=== PATIENT | female | born 1945 | race Caucasian/White ===

== ENCOUNTER 2018-07-01 11:00 | Emergency (ER) | payer OTHER ==
[2018-07-01 11:06] VITALS: BMI 25.4
[2018-07-01] MEDS ORDERED: morphine CARPU-JECT 4 MG/1 ML DISP.SYRIN IVPUSH ONE ×2 (12:28→12:29)
[2018-07-01] MEDS ORDERED: morphine SULFATE 4 MG/ML VIAL ONE (12:57)
[2018-07-01 13:16] LABS: VENOUS PC02 48.1 mmHg (41-51); VENOUS PH 7.35 (7.31-7.41)
[2018-07-01 13:16] LABS: BASO % 0.4 % (0-2.0); EOS % 1.2 % (0-4.5); HEMATOCRIT 33.1 % (32.4-45.2); LYMPH % 16.3 % (8-40); MCH 30.5 pg (25.7-33.7); MCHC 33.2 g/dl (32.0-36.0); MEAN PLT VOLUME 7.6 fl (7.5-11.1); MONO % 6.3 % (3.8-10.2); NEUT % 75.8 % (42.8-82.8); PLATELET COUNT 289 K/MM3 (134-434); RDW 14.3 % (11.6-15.6); WHITE BLOOD COUNT 8.7 K/mm3 (4.0-10.0)
[2018-07-01 13:18] LABS: VENOUS PO2 19.6 mmHg (30-40)
[2018-07-01 13:19] LABS: EPI CELLS 0 /HPF (0-5/HPF); PH,URINE 6.5 (5.0-8.0); URINE APPEARANCE CLEAR; URINE BACTERIA 0.3 /hpf (NEGATIVE); URINE BILIRUBIN NEGATIVE (NEGATIVE); URINE CASTS 0 /lpf (0-8); URINE COLOR YELLOW; URINE GLUCOSE (UA) NEGATIVE (NEGATIVE); URINE KETONE NEGATIVE (NEGATIVE); URINE LEUK ESTERASE NEGATIVE (NEGATIVE); URINE NITRITE NEGATIVE (NEGATIVE); URINE PROTEIN NEGATIVE (NEGATIVE); URINE RBC 6 /hpf (0-4); URINE UROBILINOGEN 0.2 mg/dL (0.2-1.0); URINE WBC 0 /hpf (0-5)
[2018-07-01 13:28] LABS: INR 1.05 (0.83-1.09); PROTHROMBIN TIME (PATIENT) 12.4 SEC (9.7-13.0)
[2018-07-01 13:43] LABS: ALBUMIN 4.1 g/dl (3.4-5.0); ALK PHOS 103 U/L (45-117); ANION GAP 8 MMOL/L (8-16); BILIRUBIN,TOTAL 0.3 mg/dL (0.2-1); BLOOD UREA NITROGEN 19 mg/dL (7-18); CALCIUM 9.5 mg/dL (8.5-10.1); CHLORIDE 109 mmol/L (98-107); CO2 26 mmol/L (21-32); CREATININE 0.9 mg/dL (0.55-1.3); GLUCOSE,RANDOM 97 mg/dL (74-106); LIPASE 163 U/L (73-393); MAGNESIUM 2.2 mg/dL (1.8-2.4); PHOSPHOROUS 2.9 mg/dL (2.5-4.9); POTASSIUM 4.1 mmol/L (3.5-5.1); SGOT/AST 23 U/L (15-37); SGPT/ALT 41 U/L (13-61); SODIUM 143 mmol/L (136-145); TOT PROT 7.5 g/dl (6.4-8.2)
--- NOTE | 2018-07-01 15:06 | PDOC ---
History of Present Illness - General Chief Complaint: Pain Stated Complaint: SENT BY PCP Time Seen by Provider: 07/01/18 11:51 History Source: Patient Exam Limitations: No Limitations - History of Present Illness Initial Comments: 07/01/18 14:59 73 yo F w/ a h/o GERD comes in c/o 4 days of diffuse intermittent lower abdominal pain, mostly suprapubic, radiating to the RLQ and LLQ intermittently. Also c/o 2 episodes of NB loose stools today. NO fever/chills, no NV, no headache, no neck pain, no upper abdominal pain, no burning/pain on urination, no blood in urine, no h/o kidney stones, no rash anywhere, no known sick contacts, no recent travel. No h/o abdominal surgeries, no h/o constipation. Pt has been taking Advil 400mg and tylenol 350mg with temporary relief. It was not helping today and pain was a 10/10, hence the ED visit PMD Dr. Barfield 07/01/18 15:13 Past History - Past Medical History Allergies/Adverse Reactions: Allergies Allergy/AdvReac Type Severity Reaction Status Date / Time No Known Allergies Allergy Verified 07/01/18 11:03 Home Medications: Ambulatory Orders Ciprofloxacin [Cipro -] 500 mg PO Q12H 10 Days #20 tablet 07/01/18 metroNIDAZOLE [Flagyl -] 500 mg PO TID 10 Days #30 tablet 07/01/18 Anemia: Yes Asthma: No Cancer: No Cardiac Disorders: No CVA: No COPD: No CHF: No Dementia: No Diabetes: No GI Disorders: Yes (GERD) Disorders: No HTN: No Hypercholesterolemia: No Liver Disease: No Seizures: No Thyroid Disease: No - Surgical History Abdominal Surgery: Yes Appendectomy: No Cardiac Surgery: No Cholecystectomy: No Lung Surgery: No Neurologic Surgery: No Orthopedic Surgery: No - Immunization History Immunization Up to Date: Yes - Suicide/Smoking/Psychosocial Hx Smoking Status: Yes Smoking History: Never smoked Have you smoked in the past 12 months: No Number of Cigarettes Smoked Daily: 0 Information on smoking cessation initiated: No Hx Alcohol Use: No Drug/Substance Use Hx: No Substance Use Type: None Review of Systems - Review of Systems Able to Perform ROS?: Yes Constitutional: No: Chills, Fever, Malaise, Night Sweats HEENTM: No: Eye Pain, Recent change in vision, Throat Pain Respiratory: No: Cough, Shortness of Breath Cardiac (ROS): No: Chest Pain, Palpitations, Chest Tightness ABD/GI: Yes: Abdominal cramping. No: Diarrhea, Nausea, Poor Appetite, Poor Fluid Intake, Vomiting : No: Dysuria, Hematuria Musculoskeletal: No: Back Pain Integumentary: No: Rash Neurological: No: Headache, Numbness, Dizziness Psychiatric: No: Change in Appetite Endocrine: No: Unexplained Weight Loss *Physical Exam - Vital Signs Last Vital Signs Temp Pulse Resp BP Pulse Ox 98.2 F 85 17 110/83 100 07/01/18 11:03 07/01/18 11:03 07/01/18 11:03 07/01/18 11:03 07/01/18 11:03 - Physical Exam General Appearance: Yes: Nourished. No: Apparent Distress HEENT: positive: OVI, Normal ENT Inspection, Normal Voice. negative: Pale Conjunctivae, Scleral Icterus (R), Scleral Icterus (L) Neck: positive: Supple. negative: Decreased range of motion, Tender midline Respiratory/Chest: positive: Lungs Clear, Normal Breath Sounds. negative: Respiratory Distress, Accessory Muscle Use Cardiovascular: positive: Regular Rhythm, Regular Rate Gastrointestinal/Abdominal: positive: Normal Bowel Sounds, Tender (Diffuse suprapubic, RLQ/LLQ, (+)tenderness at McBurney's point, (+)rebound, (-)Rosving/ psoas sign, (-)mosqueda's sign), Soft Musculoskeletal: positive: Normal Inspection. negative: CVA Tenderness, Decreased Range of Motion Extremity: positive: Normal Capillary Refill, Normal Inspection, Normal Range of Motion. negative: Tender, Pedal Edema Integumentary: positive: Normal Color, Dry. negative: Jaundice, Rash Neurologic: positive: Fully Oriented, Alert, Normal Mood/Affect ED Treatment Course - LABORATORY CBC & Chemistry Diagram: 07/01/18 12:55 07/01/18 12:55 - ADDITIONAL ORDERS Additional order review: Laboratory Results 07/01/18 07/01/18 07/01/18 13:14 12:55 12:55 PT with INR INR VBG pH 7.35 POC VBG pCO2 48.1 POC VBG pO2 19.6 L VBG HCO3 25.5 VBG O2 Sat (Lazaro) 24.3 L VBG Base Excess -0.2 Sodium 143 Potassium 4.1 Chloride 109 H Carbon Dioxide 26 Anion Gap 8 BUN 19 H Creatinine 0.9 Creat Clearance w eGFR 61.55 Random Glucose 97 Calcium 9.5 Phosphorus 2.9 Magnesium 2.2 Total Bilirubin 0.3 AST 23 ALT 41 Alkaline Phosphatase 103 Total Protein 7.5 Albumin 4.1 Lipase 163 Urine Color Yellow Urine Appearance Clear Urine pH 6.5 Ur Specific [place] 1.008 L Urine Protein Negative Urine Glucose (UA) Negative Urine Ketones Negative Urine Blood 1+ H Urine Nitrite Negative Urine Bilirubin Negative Urine Urobilinogen 0.2 Ur Leukocyte Esterase Negative Urine WBC (Auto) 0 Urine RBC (Auto) 6 Urine Casts (Auto) 0 U Epithel Cells (Auto) 0 Urine Bacteria (Auto) 0.3 Blood Type Antibody Screen 07/01/18 07/01/18 12:55 12:55 PT with INR 12.40 INR 1.05 VBG pH POC VBG pCO2 POC VBG pO2 VBG HCO3 VBG O2 Sat (Lazaro) VBG Base Excess Sodium Potassium Chloride Carbon Dioxide Anion Gap BUN Creatinine Creat Clearance w eGFR Random Glucose Calcium Phosphorus Magnesium Total Bilirubin AST ALT Alkaline Phosphatase Total Protein Albumin Lipase Urine Color Urine Appearance Urine pH Ur Specific [place] Urine Protein Urine Glucose (UA) Urine Ketones Urine Blood Urine Nitrite Urine Bilirubin Urine Urobilinogen Ur Leukocyte Esterase Urine WBC (Auto) Urine RBC (Auto) Urine Casts (Auto) U Epithel Cells (Auto) Urine Bacteria (Auto) Blood Type A POSITIVE Antibody Screen Negative 07/01/18 12:55 RBC 3.60 MCV 92.0 MCHC 33.2 RDW 14.3 MPV 7.6 Neutrophils % 75.8 D Lymphocytes % 16.3 D Monocytes % 6.3 Eosinophils % 1.2 Basophils % 0.4 - RADIOLOGY Radiology Studies Ordered: Category Date Time Status ABDOMEN & PELVIS CT WITH CONTR [CT] Stat CT Scan 07/01/18 12:24 Taken - Medications Given in the ED: ED Medications Discontinued Medications Generic Name Dose Route Start Last Admin Trade Name Freq PRN Reason Stop Dose Admin Morphine Sulfate 4 mg 07/01/18 12:28 07/01/18 13:00 Morphine Injection - IVPUSH 07/01/18 12:29 4 mg ONCE ONE Administration Morphine Sulfate 4 mg 07/01/18 12:29 07/01/18 13:41 Morphine Injection - IVPUSH 07/01/18 12:30 Not Given ONCE ONE Medical Decision Making - Medical Decision Making 07/01/18 15:07 73 yo F w/ diffuse lower abdominal cramping, RLQ/LLQ, (+)rebound, no other complaints. 2 loose NB stools today. Will check UA, line and lab, do a CT abdomen/pelvis. NPO and reassess 07/01/18 15:48 CT shows diverticulitis. WIll discharge with mirela alston. Dr. Rankin at bedside, will follow up with her outpatient Return ffor worsening/concerning symtpoms Pt verbalizes understanding and agrees with plan *DC/Admit/Observation/Transfer Diagnosis at time of Disposition: Diverticulitis - Discharge Dispostion Disposition: HOME Condition at time of disposition: Stable - Referrals Referrals: Liam Durham MD [Primary Care Provider] - - Patient Instructions Printed Discharge Instructions: DI for Diverticulitis Additional Instructions: Please return for worsening/concerning symptoms, including inability to tolerate PO, vomiting, diarrhea, fever. Follow up with your doctor for reassessment. - Post Discharge Activity
[2018-07-01 15:26] VITALS: BP 140/71; PULSE 75; TEMP 98.1
--- NOTE | 2018-07-01 16:09 | PDOC ---
*Physical Exam - Vital Signs Last Vital Signs Temp Pulse Resp BP Pulse Ox 98.1 F 75 20 140/71 96 07/01/18 15:24 07/01/18 15:24 07/01/18 15:24 07/01/18 15:24 07/01/18 15:24 ED Treatment Course - LABORATORY CBC & Chemistry Diagram: 07/01/18 12:55 07/01/18 12:55 - ADDITIONAL ORDERS Additional order review: Laboratory Results 07/01/18 07/01/18 07/01/18 13:14 12:55 12:55 PT with INR INR VBG pH 7.35 POC VBG pCO2 48.1 POC VBG pO2 19.6 L VBG HCO3 25.5 VBG O2 Sat (Lazaro) 24.3 L VBG Base Excess -0.2 Sodium 143 Potassium 4.1 Chloride 109 H Carbon Dioxide 26 Anion Gap 8 BUN 19 H Creatinine 0.9 Creat Clearance w eGFR 61.55 Random Glucose 97 Calcium 9.5 Phosphorus 2.9 Magnesium 2.2 Total Bilirubin 0.3 AST 23 ALT 41 Alkaline Phosphatase 103 Total Protein 7.5 Albumin 4.1 Lipase 163 Urine Color Yellow Urine Appearance Clear Urine pH 6.5 Ur Specific [place] 1.008 L Urine Protein Negative Urine Glucose (UA) Negative Urine Ketones Negative Urine Blood 1+ H Urine Nitrite Negative Urine Bilirubin Negative Urine Urobilinogen 0.2 Ur Leukocyte Esterase Negative Urine WBC (Auto) 0 Urine RBC (Auto) 6 Urine Casts (Auto) 0 U Epithel Cells (Auto) 0 Urine Bacteria (Auto) 0.3 Blood Type Antibody Screen 07/01/18 07/01/18 12:55 12:55 PT with INR 12.40 INR 1.05 VBG pH POC VBG pCO2 POC VBG pO2 VBG HCO3 VBG O2 Sat (Lazaro) VBG Base Excess Sodium Potassium Chloride Carbon Dioxide Anion Gap BUN Creatinine Creat Clearance w eGFR Random Glucose Calcium Phosphorus Magnesium Total Bilirubin AST ALT Alkaline Phosphatase Total Protein Albumin Lipase Urine Color Urine Appearance Urine pH Ur Specific [place] Urine Protein Urine Glucose (UA) Urine Ketones Urine Blood Urine Nitrite Urine Bilirubin Urine Urobilinogen Ur Leukocyte Esterase Urine WBC (Auto) Urine RBC (Auto) Urine Casts (Auto) U Epithel Cells (Auto) Urine Bacteria (Auto) Blood Type A POSITIVE Antibody Screen Negative 07/01/18 12:55 RBC 3.60 MCV 92.0 MCHC 33.2 RDW 14.3 MPV 7.6 Neutrophils % 75.8 D Lymphocytes % 16.3 D Monocytes % 6.3 Eosinophils % 1.2 Basophils % 0.4 - Medications Given in the ED: ED Medications Discontinued Medications Generic Name Dose Route Start Last Admin Trade Name Echo PRN Reason Stop Dose Admin Morphine Sulfate 4 mg 07/01/18 12:28 07/01/18 13:00 Morphine Injection - IVPUSH 07/01/18 12:29 4 mg ONCE ONE Administration Morphine Sulfate 4 mg 07/01/18 12:29 07/01/18 13:41 Morphine Injection - IVPUSH 07/01/18 12:30 Not Given ONCE ONE Medical Decision Making - Medical Decision Making 07/01/18 16:08 The patient was seen and evaluated in conjunction with DON Morgan under my direct supervision, ancillary studies were reviewed. I independently interviewed and evaluated the patient and I agree with the plan as outlined by DON Morgan. 73y F presenting with intermittent lower abd pain w/o fever/chlils, n/v, dysuria , mbelena/bpr. mild diffuse lower abd ttp on exam CT c/w diverticulitis labs revewed wo signs of leukocytosis will treat with abx as outptaient return precautions were dsicussed *DC/Admit/Observation/Transfer Diagnosis at time of Disposition: Diverticulitis - Discharge Dispostion Disposition: HOME Condition at time of disposition: Stable - Prescriptions Prescriptions: Ciprofloxacin [Cipro -] 500 mg PO Q12H 10 Days #20 tablet metroNIDAZOLE [Flagyl -] 500 mg PO TID 10 Days #30 tablet - Referrals Referrals: Liam Durham MD [Primary Care Provider] - - Patient Instructions Printed Discharge Instructions: DI for Diverticulitis Additional Instructions: Please return for worsening/concerning symptoms, including inability to tolerate PO, vomiting, diarrhea, fever. Follow up with your doctor for reassessment. - Post Discharge Activity
--- NOTE | 2018-07-05 13:41 | EKG ---
Test Reason : Blood Pressure : / mmHG Vent. Rate : 074 BPM Atrial Rate : 074 BPM P-R Int : 148 ms QRS Dur : 084 ms QT Int : 384 ms P-R-T Axes : 041 004 031 degrees QTc Int : 426 ms NORMAL SINUS RHYTHM NORMAL ECG WHEN COMPARED WITH ECG OF 08-JAN-2014 09:18, NO SIGNIFICANT CHANGE WAS FOUND Confirmed by MD Ag Edward ([id number]) on 07/05/2018 1:40:35 PM Referred By: Confirmed By:Jeison Ag MD
== END 2018-07-01 16:20 | disposition home or self-care (01) ==
LOC: JER 11:00
PROC: 3E033NZ Introduction of Analgesics, Hypnotics, Sedatives into Peripheral Vein, Percutaneous Approach (ICD-10-PCS; principal; 2018-07-01)
DX: K57.92 Diverticulitis of intestine, part unspecified, without perforation or abscess without bleeding (principal)
CPT/HCPCS: 36415; 74177-TC; 80053; 81003; 82803; 83690; 83735; 84100; 85025; 85610; 86850; 86900; 86901; 87086; 93005; 93010; 96374; 99282-25

== ENCOUNTER 2018-07-26 19:28 | Emergency (ER) | payer OTHER ==
[2018-07-26 19:54] VITALS: BP 141/82; PULSE 92; TEMP 97.9; BMI 25.4
--- NOTE | 2018-07-26 19:54 | PDOC ---
Rapid Medical Evaluation Time Seen by Provider: 07/26/18 19:50 Medical Evaluation: Allergies Allergy/AdvReac Type Severity Reaction Status Date / Time No Known Allergies Allergy Verified 07/01/18 11:03 07/26/18 19:51 Pt presents to the ER for lower abdominal pain /back pain over the past 4 days. Hx of diverticulitis last flare in June. Advised by Dr. Thurman to come to the ER for evaluation Exam: discomfort to the LLQ/RLQ to palpation. no rebound or guarding Orders: Labs, Urine, IV Pt to proceed to the ER for further evaluation Discharge Disposition - Diagnosis Abdominal pain Qualifiers: Abdominal location: generalized Qualified Code(s): R10.84 - Generalized abdominal pain - Referrals - Patient Instructions - Post Discharge Activity
--- NOTE | 2018-07-26 20:47 | PDOC ---
History of Present Illness - General Chief Complaint: Pain Stated Complaint: SENT BY PCP/ABD PAIN Time Seen by Provider: 07/26/18 19:50 History Source: Patient Exam Limitations: No Limitations - History of Present Illness Initial Comments: 07/26/18 21:04 73 yo F with a hx of diverticulitis (s/p abx course outpatient) within 1 month ago presents to the emergency department with bilateral lower abdominal pain with lower back pain. Per the patient, she states that the lower back pain began Wednesday morning, gradual onset, dull pain, 8/10, without radiation, with the following associative symptom: increased urinary frequency. Denies dysuria and hematuria. In addition, she began having lower abdominal pain today without vaginal discharge and bleeding. Cramping bilateral without radiation. Denies fevers, chills, SOB, chest pain, headaches, diarrhea. Endorses thinning stools. Patient of Dr. Rankin. Allergies: NKDA Shx: None Social: Denies tobacco, alcohol, and substance abuse. Past History - Past Medical History Allergies/Adverse Reactions: Allergies Allergy/AdvReac Type Severity Reaction Status Date / Time No Known Allergies Allergy Verified 07/26/18 19:54 Home Medications: Ambulatory Orders Ciprofloxacin [Cipro -] 500 mg PO Q12H 10 Days #20 tablet 07/01/18 metroNIDAZOLE [Flagyl -] 500 mg PO TID 10 Days #30 tablet 07/01/18 Anemia: Yes Asthma: No Cancer: No Cardiac Disorders: No CVA: No COPD: No CHF: No Dementia: No Diabetes: No GI Disorders: Yes (GERD) Disorders: No HTN: No Hypercholesterolemia: No Liver Disease: No Seizures: No Thyroid Disease: No - Surgical History Abdominal Surgery: Yes Appendectomy: No Cardiac Surgery: No Cholecystectomy: No Lung Surgery: No Neurologic Surgery: No Orthopedic Surgery: No - Immunization History Immunization Up to Date: Yes - Suicide/Smoking/Psychosocial Hx Smoking Status: Yes Smoking History: Unknown if ever smoked Have you smoked in the past 12 months: No Number of Cigarettes Smoked Daily: 0 Information on smoking cessation initiated: No Hx Alcohol Use: No Drug/Substance Use Hx: No Substance Use Type: None Review of Systems - Review of Systems Able to Perform ROS?: Yes Is the patient limited Citizen [place] proficient: No Constitutional: No: Chills, Diaphoresis, Fever, Weakness HEENTM: No: Eye Pain, Recent change in vision, Ear Pain, Nose Pain, Throat Pain , Mouth Pain Respiratory: No: Cough, Shortness of Breath, Hemoptysis Cardiac (ROS): No: Chest Pain, Lightheadedness, Palpitations, Syncope ABD/GI: No: Constipated, Diarrhea, Nausea, Vomiting *Physical Exam - Vital Signs Last Vital Signs Temp Pulse Resp BP Pulse Ox 97.9 F 92 H 16 141/82 100 07/26/18 19:51 07/26/18 19:51 07/26/18 19:51 07/26/18 19:51 07/26/18 19:51 - Physical Exam General Appearance: Yes: Nourished, Appropriately Dressed. No: Apparent Distress, Obese HEENT: positive: EOMI, OVI, Normal Voice, Symmetrical, Pharynx Normal, Hearing Grossly Normal. negative: Pale Conjunctivae, Scleral Icterus (R), Scleral Icterus (L), Muffled/Hoarse voice, Pharyngeal Erythema, Tonsillar Exudate, Tonsillar Erythema, Rhinorrhea, Sinus Tenderness, Excessive drooling Neck: positive: Trachea midline, Supple. negative: Tender, Lymphadenopathy (R) , Lymphadenopathy (L), Tender lateral, Tender midline Respiratory/Chest: positive: Lungs Clear, Normal Breath Sounds. negative: Chest Tender, Respiratory Distress, Accessory Muscle Use, Rales, Rhonchi, Stridor, Wheezing, Hyperresonant Cardiovascular: positive: Regular Rhythm, Regular Rate, S1, S2. negative: Systolic Murmur Gastrointestinal/Abdominal: positive: Normal Bowel Sounds, Tender (RLQ and LLQ pain), Flat, Soft, Rebound (RLQ). negative: Guarding, Tenderness Musculoskeletal: positive: Normal Inspection. negative: CVA Tenderness, Vertebral Tenderness Extremity: positive: Normal Capillary Refill, Normal Inspection, Normal Range of Motion. negative: Tender Integumentary: positive: Normal Color, Dry, Warm. 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 negative: Facial Droop, Numbness, Sensory Deficit ED Treatment Course - LABORATORY CBC & Chemistry Diagram: 07/26/18 20:55 07/26/18 20:55 *DC/Admit/Observation/Transfer Diagnosis at time of Disposition: Abdominal pain Qualifiers: Abdominal location: unspecified location Qualified Code(s): R10.9 - Unspecified abdominal pain Hematuria Qualifiers: Hematuria type: unspecified type Qualified Code(s): R31.9 - Hematuria, unspecified Lumbago Qualifiers: Chronicity: unspecified Back pain laterality: unspecified - Discharge Dispostion Disposition: HOME - Referrals Referrals: Liam Durham MD [Primary Care Provider] - Sandi Rankin MD [Staff Physician] - - Patient Instructions Printed Discharge Instructions: DI for Low Back Pain Additional Instructions: You were seen in the emergency department for the evaluation of your lower abdominal pain. Please follow up with your primary doctor in 1 week after discharge and follow up with Dr. Rankin in 1 week after discharge for follow up care and management. please return to the emergency department if you have worsening symptoms or new concerning symptoms such as fever, chills, migrating pain, and blood in the stool. thank you. - Post Discharge Activity
--- NOTE | 2018-07-26 21:03 | CON.GI ---
Consult Consult Specialty:: Gastroenterology Referred by:: Tobi De La Vega MD Reason for Consultation:: Abdominal and back pain - History of Present Illness Chief Complaint: Abdominal and back pain History of Present Illness: 73F presented to ER on 07/01/18 with left colon diverticulitis and was discharged on a course of Cipro and Flagyl. Seen in the office on 07/18 about a week after completing the course and was complaining of loose and narrowed stools. Her stool became better formed and she was encouraged to take Align and Miralax daily. She stopped the Miralax two days after my office visit. Today she has been experieincing crampy lower abdominal pain and loose BMs. She has not had a recent well formed stool. She also developed low back pain today. She has been experiencing chills but denies fever. - History Source History Provided By: Patient Limitations to Obtaining History: No Limitations - Past Medical History Gastrointestinal: Yes: Diverticulitis, Gastritis (H pylori gastritis 2011), GERD , Hiatal Hernia, Other (colon adenoma 2013) Musculoskeletal: Yes: Other (osteoporosis) - Past Surgical History Past Surgical History: Yes: Hysterectomy (MAX for fibroids), Tonsillectomy Additional Surgical History: Rectocele repairs 04/26 & 07/24. right thumb joint repair - Alcohol/Substance Use Hx Alcohol Use: Yes (rare) History of Substance Use: reports: None - Smoking History Smoking history: Never smoked Have you smoked in the past 12 months: No Aproximately how many cigarettes per day: 0 - Social History Usual Living Arrangement: With Spouse ADL: Independent Occupation: retired residential appraiser Place of : [facility] History of Recent Travel: No Home Medications - Allergies Allergies/Adverse Reactions: Allergies Allergy/AdvReac Type Severity Reaction Status Date / Time No Known Allergies Allergy Verified 07/26/18 19:54 - Home Medications Home Medications: Ambulatory Orders Ciprofloxacin [Cipro -] 500 mg PO Q12H 10 Days #20 tablet 07/01/18 metroNIDAZOLE [Flagyl -] 500 mg PO TID 10 Days #30 tablet 07/01/18 Family Disease History - Family Disease History Family Disease History: Heart Disease: Mother (OR age 75), Other: Father (colon polyp) Other Family History: paternal uncles had colon cancer Review of Systems - Review of Systems Constitutional: reports: Chills, Lethargy, Weakness Eyes: reports: No Symptoms HENT: reports: No Symptoms Neck: reports: No Symptoms Cardiovascular: reports: No Symptoms Respiratory: reports: No Symptoms Gastrointestinal: reports: Abdominal Pain, Diarrhea Musculoskeletal: reports: Back Pain Physical Exam-GI Vital Signs: Vital Signs Temperature 97.9 F 07/26/18 19:51 Pulse Rate 92 H 07/26/18 19:51 Respiratory Rate 16 07/26/18 19:51 Blood Pressure 141/82 07/26/18 19:51 O2 Sat by Pulse Oximetry (%) 100 07/26/18 19:51 CBC,CMP WBC 9.5 K/mm3 (4.0-10.0) 07/26/18 20:55 RBC 3.85 M/mm3 (3.60-5.2) 07/26/18 20:55 Hgb 11.8 GM/dL (10.7-15.3) 07/26/18 20:55 Hct 35.5 % (32.4-45.2) 07/26/18 20:55 MCV 92.3 fl (80-96) 07/26/18 20:55 MCH 30.8 pg (25.7-33.7) 07/26/18 20:55 MCHC 33.3 g/dl (32.0-36.0) 07/26/18 20:55 RDW 13.9 % (11.6-15.6) 07/26/18 20:55 Plt Count 292 K/MM3 (134-434) 07/26/18 20:55 MPV 7.6 fl (7.5-11.1) 07/26/18 20:55 Absolute Neuts (auto) 6.3 K/mm3 (1.5-8.0) 07/26/18 20:55 Neutrophils % 66.2 % (42.8-82.8) 07/26/18 20:55 Lymphocytes % 23.1 % (8-40) D 07/26/18 20:55 Monocytes % 8.2 % (3.8-10.2) 07/26/18 20:55 Eosinophils % 2.1 % (0-4.5) 07/26/18 20:55 Basophils % 0.4 % (0-2.0) 07/26/18 20:55 Nucleated RBC % 0 % (0-0) 07/26/18 20:55 Sodium 140 mmol/L (136-145) 07/26/18 20:55 Potassium 3.7 mmol/L (3.5-5.1) 07/26/18 20:55 Chloride 105 mmol/L (98-107) 07/26/18 20:55 Carbon Dioxide 28 mmol/L (21-32) 07/26/18 20:55 Anion Gap 6 MMOL/L (8-16) L 07/26/18 20:55 BUN 19 mg/dL (7-18) H 07/26/18 20:55 Creatinine 0.9 mg/dL (0.55-1.3) 07/26/18 20:55 Est GFR (CKD-EPI)AfAm 74.04 07/26/18 20:55 Est GFR (CKD-EPI)NonAf 63.88 07/26/18 20:55 Random Glucose 92 mg/dL (74-106) 07/26/18 20:55 Calcium 9.2 mg/dL (8.5-10.1) 07/26/18 20:55 Total Bilirubin 0.2 mg/dL (0.2-1) 07/26/18 20:55 AST 23 U/L (15-37) 07/26/18 20:55 ALT 30 U/L (13-61) 07/26/18 20:55 Alkaline Phosphatase 80 U/L (45-117) 07/26/18 20:55 Total Protein 7.6 g/dl (6.4-8.2) 07/26/18 20:55 Albumin 4.2 g/dl (3.4-5.0) 07/26/18 20:55 Imaging - Results Cat Scan: Pending Problem List - Problems (1) Diverticulitis Assessment/Plan: Suspect smoldering diverticulitis with some stricturing but need to exclude intraperitoneal and psoas abscess Code(s): K57.92 - DVTRCLI OF INTEST, PART UNSP, W/O PERF OR ABSCESS W/O BLEED (2) Back pain Code(s): M54.9 - DORSALGIA, UNSPECIFIED (3) Altered bowel habits Code(s): R19.4 - CHANGE IN BOWEL HABIT (4) Diarrhea Code(s): R19.7 - DIARRHEA, UNSPECIFIED (5) Abdominal pain Code(s): R10.9 - UNSPECIFIED ABDOMINAL PAIN Qualifiers: Abdominal location: generalized Qualified Code(s): R10.84 - Generalized abdominal pain Assessment/Plan Impression: Suspect smoldering diverticulitis with some stricturing but need to exclude intraperitoneal and psoas abscess Plan: CT Scan with oral contrast Stool for C diff Await results to determine further measures- discussed the case with Dr De La Vega
[2018-07-26 21:21] LABS: BASO % 0.4 % (0-2.0); EOS % 2.1 % (0-4.5); HEMATOCRIT 35.5 % (32.4-45.2); HEMOGLOBIN 11.8 GM/dL (10.7-15.3); LYMPH % 23.1 % (8-40); MCH 30.8 pg (25.7-33.7); MCHC 33.3 g/dl (32.0-36.0); MEAN CELL VOLUME 92.3 fl (80-96); MEAN PLT VOLUME 7.6 fl (7.5-11.1); MONO % 8.2 % (3.8-10.2); NEUT % 66.2 % (42.8-82.8); PLATELET COUNT 292 K/MM3 (134-434); RBC 3.85 M/mm3 (3.60-5.2); RDW 13.9 % (11.6-15.6); WHITE BLOOD COUNT 9.5 K/mm3 (4.0-10.0)
[2018-07-26 21:23] LABS: EPI CELLS 0.8 /HPF (0-5/HPF); PH,URINE 5.5 (5.0-8.0); URINE APPEARANCE CLEAR; URINE BACTERIA 1.5 /hpf (NEGATIVE); URINE BILIRUBIN NEGATIVE (NEGATIVE); URINE CASTS 2 /lpf (0-8); URINE COLOR YELLOW; URINE GLUCOSE (UA) NEGATIVE (NEGATIVE); URINE KETONE NEGATIVE (NEGATIVE); URINE LEUK ESTERASE 1+ (NEGATIVE); URINE NITRITE NEGATIVE (NEGATIVE); URINE PROTEIN NEGATIVE (NEGATIVE); URINE RBC 22 /hpf (0-4); URINE UROBILINOGEN 0.2 mg/dL (0.2-1.0); URINE WBC 2 /hpf (0-5)
[2018-07-26 21:34] LABS: INR 0.99 (0.83-1.09); PROTHROMBIN TIME (PATIENT) 11.7 SEC (9.7-13.0)
[2018-07-26 21:48] LABS: ALBUMIN 4.2 g/dl (3.4-5.0); BILIRUBIN,TOTAL 0.2 mg/dL (0.2-1); CALCIUM 9.2 mg/dL (8.5-10.1); CREATININE 0.9 mg/dL (0.55-1.3); POTASSIUM 3.7 mmol/L (3.5-5.1); TOT PROT 7.6 g/dl (6.4-8.2)
--- NOTE | 2018-07-27 00:22 | PDOC ---
Documentation entered by El Prince SCRIBE, acting as scribe for Cynthia Breen DO. Cynthia Breen DO: This documentation has been prepared by the Niki keith Nirvannie, SCRIBE, under my direction and personally reviewed by me in its entirety. I confirm that the documentation accurately reflects all work, treatment, procedures, and medical decision making performed by me. Attending Attestation - Resident Resident Name: Tobi De La Vega - ED Attending Attestation I have performed the following: I have examined & evaluated the patient, The case was reviewed & discussed with the resident, I agree w/resident's findings & plan - HPI HPI: 07/26/18 21:41 The patient is a 73 year old female, with a significant past medical history of diverticulitis (approx. 1 month ago that was treated outpatient), who presents to the emergency department with, 4 days of gradual onset abdominal pain described as an 8/10 dull pain with associated urinary frequency. She denies recent dysuria, urgency or hematuria. She denies recent chest pain or shortness of breath. Allergies: NKDA Primary Care Physician: Dr. Adames GI: Dr. Rankin - Physicial Exam PE: 07/26/18 21:41 Agree with resident exam. - Medical Decision Making 07/27/18 00:02 EXAM: CT abdomen and pelvis with contrast HISTORY: Bilateral lower abdominal pain COMPARISON: None. FINDINGS: There is no bowel obstruction or inflammation. Sigmoid and left colon diverticulosis. There are a few fatty strandings around the mid sigmoid but not sufficient to make a diagnosis of diverticulitis. Recommend follow-up. Negative for colitis. Normal appendix. No free intraperitoneal air or free fluid. Right renal cyst. No acute renal abnormalities. No urinary tract obstruction. Multiple liver cysts. There are at least 2 lesions, one in the dome and one in the left lobe which are not definitely behaving like cysts.. Could represent hemangiomas but follow-up recommended to make not aggressive. Prior scans have not been transmitted. Recommend comparison with prior scans. Normal spleen. Normal pancreas. Normal adrenal glands. Osseous structures are intact. Impression: A few fatty strands around the midsigmoid. Insufficient findings to make a diagnosis of diverticulitis but recommend follow-up. Liver lesions, some are cysts. Some may not be. See above for discussion and recommendations Read by: Sandro Deng MD 07/27/18 00:14 73-year-old female status post recent antibiotic treatment for diverticulitis advised to come in for further evaluation 07/27/18 00:20 CT scan as above On exam patient has reproducible bilateral lumbar paravertebral musculature tenderness with will be muscle beds present There is no midline tenderness There has been no bowel or urinary incontinence, there is been no leg weakness to suggest spinal cord involvement Call placed to patient's patrol officer by the emergency medicine resident who has been advised as to the findings She will be discharged home and will follow up with her regular physicians
== END 2018-07-27 00:35 | disposition home or self-care (01) ==
LOC: JER 19:28
DX: R31.9 Hematuria, unspecified (principal); R10.9 Unspecified abdominal pain; K21.9 Gastro-esophageal reflux disease without esophagitis
CPT/HCPCS: 36415; 74177-TC; 80053; 81003; 85025; 85610; 87086; 99282-25

== ENCOUNTER 2018-12-21 06:54 | Day surgery (SDC) | payer OTHER ==
[2018-12-14 16:04] VITALS: BMI 25.3
[2018-12-21] MEDS ORDERED: BSS (NA/CA/MG/K) BALANCED SALT SOLUTION OPHTH SOLN 15 ML BOTTLE ONE (07:11)
[2018-12-21] MEDS ORDERED: LIDOCAINE 1% P/F 10 MG/ML VIAL ONE (07:11)
[2018-12-21] MEDS ORDERED: CARBACHOL 0.01% INTRA-OCULAR 1.5 ML VIAL ONE (07:11)
[2018-12-21] MEDS ORDERED: TETRACAINE 0.5% OPHTH SOLN 2 ML BOTTLE ONE (07:11)
[2018-12-21] MEDS ORDERED: NEO/POLYMYX B SULF/DEXAMETH OPHTHALMIC 5ML BOTTLE ONE (07:11)
[2018-12-21] MEDS: PHENYLEPHRINE 2.5% OPHTH SOLN 15 ML BOTTLE ONE ×3 (07:20→07:30)
[2018-12-21] MEDS: CIPROFLOXACIN 0.3% EYE DROPS 5 ML BOTTLE ONE ×3 (07:20→07:30)
[2018-12-21] MEDS: TROPICAMIDE 1% OPHTH SOLN 15 ML BOTTLE ONE ×3 (07:20→07:30)
[2018-12-21] MEDS: CYCLOPENTOLATE 2% OPHTH SOLN 2 ML BOTTLE ONE ×3 (07:20→07:30)
[2018-12-21] MEDS ORDERED: oxyCODONE HCL 5 MG TABLET PO PRN (07:29)
[2018-12-21] MEDS ORDERED: ACETAMINOPHEN 325 MG TABLET (FP) PO PRN (07:29)
[2018-12-21] MEDS ORDERED: ONDANSETRON 4 MG/2 ML VIAL IVPUSH PRN (07:29)
[2018-12-21] MEDS ORDERED: MIDAZOLAM HCL 2 MG/2 ML SINGLE DOSE VIAL ONE (08:06)
[2018-12-21 09:25] VITALS: TEMP 97.7
[2018-12-21 09:54] VITALS: BP 118/65; PULSE 74
--- NOTE | 2018-12-21 10:35 | OP ---
DATE OF OPERATION: 12/21/2018 OPERATIVE PROCEDURE: Lens Phacoemulsification with Posterior Chamber Intraocular Lens Placement, Right Eye. PREOPERATIVE DIAGNOSIS: Visually Significant Cataract of Right Eye. POSTOPERATIVE DIAGNOSIS: Visually Significant Cataract of Right Eye. SURGEON: Wallace Monk MD ANESTHESIA: MAC ANESTHESIOLOGIST: PROCEDURE: The patient was brought to the operating room and placed under monitored anesthesia care by Anesthesia. A drop of Tetracaine was then placed over the right eye. The patient was then prepped and draped in the usual sterile manner. A speculum was then placed over the right eye. The eye was then well irrigated with copious amounts of BSS (balanced salt solution). The operating microscope was then moved into position. A paracentesis was performed using a 15 degree blade. At this point 0.5 mL of 1% preservative free-lidocaine was injected into the anterior chamber. Amvisc plus was then injected into the anterior chamber. A clear corneal incision was then formed using a 2.2 mm keratome. A capsulorrhexis was then performed in a continuous circular fashion beginning with a cystotome completed with an Utratas forceps. Hydrodissection was then performed using BSS on a cannula. The phaco probe was then introduced through the corneal wound and the cataract was removed using the phaco chop technique. Approximately 3 seconds of absolute phaco time was used. The remaining cortex was then removed using irrigation and aspiration with an I/A probe. The capsule was then filled with regular Amvisc and the capsule was noted to be intact. A previously selected foldable posterior chamber intraocular lens was then injected into the capsule through the corneal wound using a lens injector. It was then dialed into position using a Sinskey hook. The Amvisc was then removed using irrigation and aspiration. Miostat was then injected through the paracentesis to constrict the pupil. The paracentesis and corneal wound were then hydrated and noted to be watertight. A drop of Maxitrol was then placed over the eye. The speculum was removed and clear shield was taped over the eye. The patient tolerated the procedure well and there were no surgical complications. The patient was asked to follow up in my office the next day. Sushil DE LA [id number]
== END 2018-12-21 09:45 | disposition home or self-care (01) ==
LOC: FASU 06:54
PROVIDERS: ATTEND Ophthalmology
PROC: 08RJ3JZ Replacement of Right Lens with Synthetic Substitute, Percutaneous Approach (ICD-10-PCS; principal; 2018-12-21 08:53)
DX: H26.8 Other specified cataract (principal)

== ENCOUNTER 2019-01-25 08:41 | Day surgery (SDC) | payer OTHER ==
[2019-01-19 13:51] VITALS: BMI 25.3
[2019-01-25] MEDS: TROPICAMIDE 1% OPHTH SOLN 15 ML BOTTLE ONE ×3 (09:05→09:15)
[2019-01-25] MEDS: PHENYLEPHRINE 2.5% OPHTH SOLN 15 ML BOTTLE ONE ×3 (09:05→09:15)
[2019-01-25] MEDS: CIPROFLOXACIN 0.3% EYE DROPS 5 ML BOTTLE ONE ×3 (09:05→09:15)
[2019-01-25] MEDS: CYCLOPENTOLATE 2% OPHTH SOLN 2 ML BOTTLE ONE ×3 (09:05→09:15)
[2019-01-25] MEDS ORDERED: BSS (NA/CA/MG/K) BALANCED SALT SOLUTION OPHTH SOLN 15 ML BOTTLE ONE (09:23)
[2019-01-25] MEDS ORDERED: LIDOCAINE 1% P/F 10 MG/ML VIAL ONE (09:23)
[2019-01-25] MEDS ORDERED: NEO/POLYMYX B SULF/DEXAMETH OPHTHALMIC 5ML BOTTLE ONE (09:24)
[2019-01-25] MEDS ORDERED: CARBACHOL 0.01% INTRA-OCULAR 1.5 ML VIAL ONE (09:24)
[2019-01-25] MEDS ORDERED: MIDAZOLAM HCL 2 MG/2 ML SINGLE DOSE VIAL ONE ×2 (09:38→10:24)
[2019-01-25 10:57] VITALS: TEMP 97.6
[2019-01-25 11:11] VITALS: PULSE 70
[2019-01-25 11:21] VITALS: BP 118/65
--- NOTE | 2019-01-26 07:49 | OP ---
DATE OF OPERATION: 01/25/2019 OPERATIVE PROCEDURE: Lens phacoemulsification with posterior chamber intraocular lens placement left eye. PREOPERATIVE DIAGNOSIS: Visually significant cataract of left eye. POSTOPERATIVE DIAGNOSIS: Visually significant cataract of left eye. SURGEON: Wallace Matt M.D. ANESTHESIA: MAC PROCEDURE: The patient was brought to the operating room and placed under monitored anesthesia care by Anesthesia. A drop of tetracaine was then placed over the left eye. The patient was then prepped and draped in the usual sterile manner. A speculum was then placed over the left eye. The eye was then well irrigated with copious amounts of BSS (balanced salt solution). The operating microscope was then moved into position. A paracentesis was performed using a 15-degree blade. At this point 0.5 mL of 1% preservative-free lidocaine was injected into the anterior chamber. Amvisc Plus was then injected into the anterior chamber. A clear corneal incision was then formed using a 2.2-mm keratome. A capsulorrhexis was then performed in a continuous circular fashion beginning with a cystotome and completed with Utrata forceps. Hydrodissection was then performed using BSS on a cannula. The phaco probe was then introduced through the corneal wound, and the cataract was removed using the phaco-chop technique. Approximately 3 seconds of absolute phaco time was used. The remaining cortex was then removed using irrigation and aspiration with an I/A probe. The capsule was then filled with regular Amvisc, and the capsule was noted to be intact. A previously selected foldable posterior chamber intraocular lens was then injected into the capsule through the corneal wound using a lens injector. It was then dialed into position using a Sinskey hook. The Amvisc was then removed using irrigation and aspiration. Miostat was then injected through the paracentesis to constrict the pupil. The paracentesis and corneal wound were then hydrated and noted to be watertight. A drop of Maxitrol was then placed over the eye. The speculum was removed and clear shield was taped over the eye. The patient tolerated the procedure well, and there were no surgical complications. The patient was asked to follow up in my office the next day. WALLACE MATT M.D. MITCH/[id number]
== END 2019-01-25 11:15 | disposition home or self-care (01) ==
LOC: FASU 08:41
PROVIDERS: ATTEND Ophthalmology
PROC: 08RK3JZ Replacement of Left Lens with Synthetic Substitute, Percutaneous Approach (ICD-10-PCS; principal; 2019-01-25 10:27)
DX: H26.8 Other specified cataract (principal)

== ENCOUNTER 2019-04-12 01:11 | Emergency (ER) | payer OTHER ==
[2019-04-12 01:20] VITALS: BP 161/87; PULSE 95; TEMP 97.7; BMI 25.4
[2019-04-12] MEDS ORDERED: PHENAZOPYRIDINE HCL 100 MG TABLET (FP) PO ONE (01:25)
--- NOTE | 2019-04-12 01:28 | PDOC ---
History of Present Illness - General Chief Complaint: Urinary Problem Stated Complaint: URINARY DISCOMFORT Time Seen by Provider: 04/12/19 01:21 History Source: Patient Exam Limitations: No Limitations - History of Present Illness Initial Comments: 04/12/19 01:25 This is a 74-year-old female who comes in complaining of urinary frequency and dysuria. Patient denies any fevers, chills, abdominal pain, back pain, flank pain. Patient took Pyridium a couple of days ago said it did not help. Patient denies any other complaints. Allergies: as per nursing notes Past Medical History: none Social history: Lives with family. No smoking. No alcohol. No illicit drugs. Surgical history: None General: No fevers or chills, no weakness, no weight loss HEENT: No change in vision. No sore throat,. No ear pain CardioVascular: no chest discomfort. No shortness of breath Respiratory:No cough, or wheezing. Gastrointestinal: no nausea, vomiting, diarrhea or constipation, No rectal bleeding Genitourinary: + dysuria, + frequency Musculoskeletal: No joint or muscle pain or swelling Neurologic: No headache, vertigo, dizziness or loss of consciousness Psychiatric: nor depression Skin: No rashes or easy bruising Endocrine: no increased thirst or abnormal weight change Allergic: no skin or latex allergy All other systems reviewed and normal GENERAL: The patient is awake, alert, and fully oriented, in no acute distress. HEAD: Normal with no signs of trauma. EYES: Pupils equal, round and reactive to light, extraocular movements intact, sclera anicteric, conjunctiva clear. EXTREMITIES:atraumatic, Normal range of motion, no edema. NEUROLOGICAL: Normal speech, normal gait. PSYCH: Normal mood, normal affect. SKIN: Warm, Dry, normal turgor, no rashes or lesions noted. Assessment and plan: This is a 74-year-old female who comes in complaining of urinary frequency and dysuria. Patient urinalysis and urine culture was sent patient started on Pyridium Past History - Past Medical History Allergies/Adverse Reactions: Allergies Allergy/AdvReac Type Severity Reaction Status Date / Time No Known Allergies Allergy Verified 04/12/19 01:14 Home Medications: Ambulatory Orders Famotidine [Pepcid] 40 mg PO BID 12/14/18 Alendronate Sodium [Fosamax] 1 tab PO WEEKLY 10/03/19 Nitrofurantoin Monohyd/M-Cryst [Macrobid -] 100 mg PO BID #14 capsule 04/12/19 Anemia: No Asthma: No Cancer: No Cardiac Disorders: No CVA: No COPD: No CHF: No Dementia: No Diabetes: No GI Disorders: Yes (GERD) Disorders: No HTN: No Hypercholesterolemia: No Liver Disease: No Seizures: No Thyroid Disease: No - Surgical History Abdominal Surgery: Yes Appendectomy: No Cardiac Surgery: No Cholecystectomy: No Lung Surgery: No Neurologic Surgery: No Orthopedic Surgery: Yes (left shoulder 2014) - Immunization History Immunization Up to Date: Yes - Psycho Social/Smoking Cessation Hx Smoking Status: Yes Smoking History: Never smoked Have you smoked in the past 12 months: No Number of Cigarettes Smoked Daily: 0 Information on smoking cessation initiated: No Hx Alcohol Use: No Drug/Substance Use Hx: No Substance Use Type: Alcohol Hx Substance Use Treatment: No *Physical Exam - Vital Signs Last Vital Signs Temp Pulse Resp BP Pulse Ox 97.7 F 95 H 18 161/87 100 04/12/19 01:17 04/12/19 01:17 04/12/19 01:17 04/12/19 01:17 04/12/19 01:17 Discharge - Discharge Information Problems reviewed: Yes Clinical Impression/Diagnosis: Cystitis Condition: Stable Disposition: HOME - Admission No - Additional Discharge Information Prescriptions: Nitrofurantoin Monohyd/M-Cryst [Macrobid -] 100 mg PO BID #14 capsule - Follow up/Referral - Patient Discharge Instructions Additional Instructions: Take Pyridium 1 tablet 3 times a day for 2 days these are for the symptoms. Take Macrobid 1 tablet twice a day for 7 days. Return to the emergency department immediately with ANY new, persistent or worsening symptoms. Continue any medications as previously prescribed by your physician. You should follow up with your primary doctor as soon as possible regarding today's emergency department visit. . Please make sure your doctor reviews the results of your emergency evaluation. Thank you for coming to the Emergency Department today for your care. It was a pleasure to see you today. Please note that your evaluation is INCOMPLETE until you follow-up with your doctor. - Post Discharge Activity
[2019-04-12] MEDS ORDERED: PHENAZOPYRIDINE HCL 100 MG TABLET (FP) ONE (01:29)
[2019-04-12 02:46] LABS: EPI CELLS 0.1 /HPF (0-5/HPF); HYALINE CASTS 7 /lpf (0-8); URINE APPEARANCE CLOUDY; URINE BACTERIA 1.2 /hpf (NEGATIVE); URINE BILIRUBIN 1+ (NEGATIVE); URINE COLOR DK YELLOW; URINE GLUCOSE (UA) NEGATIVE (NEGATIVE); URINE KETONE NEGATIVE (NEGATIVE); URINE LEUK ESTERASE 2+ (NEGATIVE); URINE NITRITE POSITIVE (NEGATIVE); URINE PROTEIN 2+ (NEGATIVE); URINE WBC 116 /hpf (0-5)
[2019-04-12] MEDS ORDERED: NITROFURANTOIN MACROCRYSTAL 50 MG CAPSULE (FP) ONE (02:48)
[2019-04-12] MEDS ORDERED: NITROFURANTOIN MACROCRYSTAL 50 MG CAPSULE (FP) PO SCH (03:00)
[2019-04-12 03:05] LABS: URINE RBC 249.2 /hpf (0-4); YEAST NONE SEEN (NEGATIVE)
== END 2019-04-12 02:52 | disposition home or self-care (01) ==
LOC: FER 01:11
DX: N30.90 Cystitis, unspecified without hematuria (principal); K21.9 Gastro-esophageal reflux disease without esophagitis
CPT/HCPCS: 81003; 87086; 99282-25

== ENCOUNTER 2019-09-15 15:00 | Emergency (ER) | payer OTHER ==
[2019-09-15 15:39] VITALS: BP 161/94; PULSE 84; TEMP 98.1; BMI 25.7
[2019-09-15] MEDS ORDERED: ACETAMINOPHEN 1000 MG/100 ML VIAL (NON FORMULARY) IVPB ONE (15:41)
[2019-09-15] MEDS ORDERED: SODIUM CHLORIDE 0.9% 1000 ML INFUS.BAG IV ONE (15:41)
[2019-09-15] MEDS ORDERED: ACETAMINOPHEN INJECTION 100 ML IVPB ONE (15:45)
[2019-09-15 15:51] LABS: EOS % 1.7 % (0-4.5); HEMATOCRIT 34.1 % (32.4-45.2); HEMOGLOBIN 11.5 GM/dl (10.7-15.3); LYMPH % 23.4 % (8-40); MCH 30.1 pg (25.7-33.7); MCHC 33.7 g/dl (32.0-36.0); MEAN CELL VOLUME 89.2 fl (80-96); MEAN PLT VOLUME 7.5 fl (7.5-11.1); NEUT % 66.9 % (42.8-82.8); PLATELET COUNT 290 K/MM3 (134-434); RBC 3.82 M/mm3 (3.60-5.2); WHITE BLOOD COUNT 8.1 K/mm3 (4.0-10.8)
[2019-09-15] MEDS ORDERED: MAG HYDROX/AL HYDROX/SIMETH 30 ML UNIT-DOSE CUP ONE (16:05)
[2019-09-15] MEDS ORDERED: LIDOCAINE VISCOUS 2% ORAL/TOP 20 ML UNIT-DOSE CUP ONE (16:06)
[2019-09-15] MEDS ORDERED: FAMOTIDINE 20 MG TABLET ONE (16:06)
[2019-09-15 16:07] LABS: ALBUMIN 4.5 g/dl (3.4-5.0); BILIRUBIN,TOTAL 0.8 mg/dl (0.2-1); CALCIUM 9.5 mg/dl (8.5-10); CREATININE 0.8 mg/dl (0.55-1.3); POTASSIUM 3.9 mmol/L (3.5-5.1); TOT PROT 7.3 g/dl (6.4-8.2)
[2019-09-15] MEDS ORDERED: morphine CARPU-JECT 4 MG/1 ML DISP.SYRIN IVPUSH ONE (17:10)
[2019-09-15] MEDS ORDERED: morphine SULFATE 4 MG/ML VIAL ONE (17:12)
--- NOTE | 2019-09-15 17:47 | PDOC ---
Documentation entered by Sena Carrillo SCRIBE, acting as scribe for Frances Muse MD. Frances Muse MD: This documentation has been prepared by the dashibeGerardo Lincy, SCRIBE, under my direction and personally reviewed by me in its entirety. I confirm that the documentation accurately reflects all work, treatment, procedures, and medical decision making performed by me. History of Present Illness - General Chief Complaint: Pain Stated Complaint: ABD PAIN History Source: Patient Exam Limitations: No Limitations - History of Present Illness Initial Comments: 09/15/19 15:33 The patient is a 74-year-old female with a past medical history significant for diverticulitis who presents to the emergency department with abdominal pain. The patient presents with mid-lower abdominal pain since Wednesday, that progressively worsened today. The patient reports taking Advil earlier this week, denies taking any Advil today. The patient reports the pain is nonradiating, and isnt aggravate with walking or movement. The patient reports she had episodes of diarrhea on Wednesday, denies any episodes today. The patient reports she reached out to her GI doctor, was unable to get a hold of the on-call doctor, so the patient came to the ER. Denies taking any medication today. Denies recent antibiotic use. Denies nausea, vomiting, diarrhea (today). Denies urinary symptoms. Allergies: NKA GI: Dr. Paige PCP: Dr. Durham. Past History - Medical History Allergies/Adverse Reactions: Allergies Allergy/AdvReac Type Severity Reaction Status Date / Time No Known Allergies Allergy Verified 09/15/19 15:04 Home Medications: Ambulatory Orders Alendronate Sodium [Fosamax] 1 tab WEEKLY 09/15/19 Famotidine [Pepcid] 40 mg PO BID 09/15/19 Anemia: No Asthma: No Cancer: No Cardiac Disorders: No CVA: No COPD: No CHF: No Dementia: No Diabetes: No GI Disorders: Yes (GERD, DIVERTICULITIS) Disorders: No HTN: No Hypercholesterolemia: No Liver Disease: No Seizures: No Thyroid Disease: No - Surgical History Abdominal Surgery: Yes Appendectomy: No Cardiac Surgery: No Cholecystectomy: No Lung Surgery: No Neurologic Surgery: No Orthopedic Surgery: Yes (left shoulder 2014) - Immunization History Immunization Up to Date: Yes - Psycho-Social/Smoking History Smoking Status: Yes Smoking History: Never smoked Have you smoked in the past 12 months: No Number of Cigarettes Smoked Daily: 0 Information on smoking cessation initiated: No - Substance Abuse Hx (Audit-C & DAST Scrn) How often the patient has a drink containing alcohol: Never Score: In Men: 4 or > Positive; In Women: 3 or > Positive: 0 Screen Result (Pos requires Nsg. Audit-10AR): Negative In the last yr the pt used illegal drug/Rx for NonMed reason: No Score: Yes response is considered Positive: 0 Screen Result (Positive result requires Nsg. DAST-10): Negative Review of Systems - Review of Systems Able to Perform ROS?: Yes Comments:: 09/15/19 15:34 GENERAL/CONSTITUTIONAL: No fever or chills. No weakness. HEAD, EYES, EARS, NOSE AND THROAT: No change in vision. No ear pain or disch arge. No sore throat. CARDIOVASCULAR: No chest pain or shortness of breath. RESPIRATORY: No cough, wheezing, or hemoptysis. GASTROINTESTINAL: +abdominal pain. No nausea, vomiting, diarrhea or constipa tion. GENITOURINARY: No dysuria, frequency, or change in urination. MUSCULOSKELETAL: No joint or muscle swelling or pain. No neck or back pain. SKIN: No rash NEUROLOGIC: No headache, vertigo, loss of consciousness, or change in strength/sensation. ENDOCRINE: No increased thirst. No abnormal weight change. HEMATOLOGIC/LYMPHATIC: No anemia, easy bleeding, or history of blood clots. ALLERGIC/IMMUNOLOGIC: No hives or skin allergy. *Physical Exam - Vital Signs Last Vital Signs Temp Pulse Resp BP Pulse Ox 98.1 F 84 18 161/94 99 09/15/19 15:00 09/15/19 15:00 09/15/19 15:00 09/15/19 15:00 09/15/19 15:00 - Physical Exam 09/15/19 15:59 GENERAL: Awake, alert, and fully oriented, in no acute distress HEAD: No signs of trauma EYES: PERRLA, EOMI, sclera anicteric, conjunctiva clear ENT: Auricles normal inspection, hearing grossly normal, nares patent. Moist mucosa NECK: Normal ROM, supple LUNGS: Breath sounds equal, clear to auscultation bilaterally. No wheezes, and no crackles HEART: Regular rate and rhythm ABDOMEN: +suprapubic tenderness to palpation, no rebound or guarding. No CVA tenderness. EXTREMITIES: Normal range of motion, no edema. No erythema or tenderness. NEUROLOGICAL: Alert and oriented x3. SKIN: Warm, Dry, normal turgor, no rashes or lesions noted. ED Treatment Course - LABORATORY CBC & Chemistry Diagram: 09/15/19 13:30 09/15/19 13:30 Medical Decision Making - Medical Decision Making 09/15/19 17:43 pt with lower abd pain, h/o diverticulitis, no improvement with motrin. differential uti, pyelonephritis, diveritculitis, ovarian path. plan ct a/p labs pain control pt ua noted for blood. ct a/p pending. labs unremarkable. Discharge - Discharge Information Problems reviewed: Yes Clinical Impression/Diagnosis: Abdominal pain, Hematuria Condition: Stable Disposition: HOME - Admission No - Follow up/Referral Referrals: Liam Durham MD [Primary Care Provider] - Sandi Rankin MD [Staff Physician] - Morgan Blanco MD., MD [Staff Physician] - - Patient Discharge Instructions Patient Printed Discharge Instructions: Blood in Urine Additional Instructions: Your CAT scan today shows that you have a fatty liver. This needs to be follow- up with a supervisor [place]. You should follow-up with your supervisor [facility] Dr. Duffy please call to schedule an appointment you should avoid all alcohol as it can contribute to worsening liver function. Your urine shows that you have blood in your urine this needs to be followed up with the urologist he can follow-up with Dr. Blanco please return for any fevers chills nausea vomiting or any worsening pain. There is no noted diverticulitis today on your CAT scan otherwise your labs are unremarkable return for any problems or concerns - Post Discharge Activity
== END 2019-09-15 19:10 | disposition home or self-care (01) ==
LOC: FER 15:00
PROC: 3E033GC Introduction of Other Therapeutic Substance into Peripheral Vein, Percutaneous Approach (ICD-10-PCS; principal; 2019-09-15)
DX: R10.30 Lower abdominal pain, unspecified (principal); R31.9 Hematuria, unspecified
CPT/HCPCS: 36415; 74177-TC; 80053; 81003; 81015; 83690; 85025; 99285-25; J0131

== ENCOUNTER 2021-06-19 14:24 | Inpatient (IN) | payer OTHER ==
[2021-06-19] MEDS ORDERED: SODIUM CHLORIDE 1,000 ML IV STA (15:14)
[2021-06-19] MEDS ORDERED: ONDANSETRON 4 MG/2 ML VIAL IVPUSH ONE (15:14)
[2021-06-19] MEDS ORDERED: morphine CARPU-JECT 4 MG/1 ML DISP.SYRIN IVPUSH ONE ×2 (15:14→19:43)
[2021-06-19] MEDS ORDERED: morphine SULFATE 4 MG/ML VIAL ONE ×2 (15:33→21:28)
[2021-06-19] MEDS ORDERED: ONDANSETRON 4 MG/2 ML VIAL ONE (15:33)
[2021-06-19 15:34] LABS: BASO % 0.5 % (0-2.0); EOS % 1.4 % (0-4.5); HEMATOCRIT 35.3 % (32.4-45.2); HEMOGLOBIN 11.8 GM/dL (10.7-15.3); LYMPH % 20.8 % (8-40); MCH 30.3 pg (25.7-33.7); MCHC 33.4 g/dl (32.0-36.0); MEAN CELL VOLUME 90.5 fl (80-96); MEAN PLT VOLUME 7.6 fl (7.5-11.1); MONO % 6.4 % (3.8-10.2); NEUT % 70.9 % (42.8-82.8); PLATELET COUNT 292 10^3/uL (134-434); RDW 13.3 % (11.6-15.6); WHITE BLOOD COUNT 8.2 K/mm3 (4.0-10.0)
[2021-06-19 15:35] LABS: URINE APPEARANCE Clear; URINE BILIRUBIN Negative (NEGATIVE); URINE COLOR Yellow; URINE GLUCOSE (UA) Negative (NEGATIVE); URINE KETONE Trace (NEGATIVE); URINE LEUK ESTERASE Negative (NEGATIVE); URINE NITRITE Negative (NEGATIVE); URINE PROTEIN Negative (NEGATIVE); URINE UROBILINOGEN 0.2 mg/dL (0.2-1.0)
[2021-06-19 15:38] LABS: EPI CELLS 0.1 /uL (0-25.1); HYALINE CASTS 0 /uL (0-3.1); URINE BACTERIA 0 /uL (0-1359); URINE RBC 15 /uL (0-23.9); URINE WBC 0.6 /uL (0-25.8)
[2021-06-19 16:03] LABS: ALBUMIN 4.2 g/dl (3.4-5.0); BLOOD UREA NITROGEN 15.5 mg/dL (7-18); CALCIUM 9.7 mg/dL (8.5-10.1)
[2021-06-19 16:06] LABS: CREATININE 1.1 mg/dL (0.55-1.3)
[2021-06-19 16:08] LABS: BILIRUBIN,TOTAL 0.3 mg/dL (0.2-1); TOT PROT 7.7 g/dl (6.4-8.2)
[2021-06-19] MEDS ORDERED: CEFTRIAXONE 1,000 MG in DEXTROSE 5%-WATER - 50 ML IVPB ONE (19:20)
[2021-06-19] MEDS ORDERED: CEFTRIAXONE 1 GM/50 ML BAG ONE (20:12)
[2021-06-19] MEDS: SODIUM CHLORIDE 1,000 ML IV SCH (20:25)
[2021-06-20 01:02] VITALS: BMI 26.4
[2021-06-20] MEDS: ACETAMINOPHEN 325 MG TABLET (FP) PO PRN ×2 (07:31→16:24)
[2021-06-20 09:14] LABS: BASO % 0.7 % (0-2.0); EOS % 2.3 % (0-4.5); HEMATOCRIT 30.4 % (32.4-45.2); HEMOGLOBIN 10.3 GM/dL (10.7-15.3); LYMPH % 29.3 % (8-40); MEAN CELL VOLUME 91.2 fl (80-96); MEAN PLT VOLUME 7.3 fl (7.5-11.1); MONO % 10.1 % (3.8-10.2); NEUT % 57.6 % (42.8-82.8); PLATELET COUNT 239 10^3/uL (134-434); RBC 3.34 M/mm3 (3.60-5.2); RDW 13.9 % (11.6-15.6); WHITE BLOOD COUNT 5.5 K/mm3 (4.0-10.0)
[2021-06-20 09:22] LABS: INR 1.15 (0.83-1.09); PROTHROMBIN TIME (PATIENT) 13.2 SEC (9.7-13.0)
[2021-06-20 09:25] LABS: ACTIVATED PTT 36.1 SECONDS (25.2-36.5)
[2021-06-20 09:30] LABS: BLOOD UREA NITROGEN 11.3 mg/dL (7-18)
[2021-06-20 09:33] LABS: CREATININE 0.9 mg/dL (0.55-1.3)
[2021-06-20] MEDS ORDERED: ONDANSETRON 4 MG/2 ML VIAL IVPUSH PRN (09:58)
[2021-06-20] MEDS: FAMOTIDINE 40 MG TABLET PO SCH ×2 (10:21→21:43)
[2021-06-20] MEDS: HYDROCHLOROTHIAZIDE 12.5 MG CAPSULE (FP) PO SCH (10:21)
[2021-06-20] MEDS: HEPARIN NA (PORCINE) 5,000 UNITS/ML 1ML VIAL SQ SCH ×3 (10:21→21:43)
[2021-06-20] MEDS ORDERED: cefTRIAXone SODIUM 1 GM VIAL ONE (21:33)
[2021-06-20] MEDS ORDERED: DEXTROSE 5%-WATER - 50 ML IVPB ONE (21:33)
[2021-06-20] MEDS: CEFTRIAXONE 1 GM in DEXTROSE 5%-WATER - 50 ML IVPB SCH (21:43)
[2021-06-20] MEDS: SODIUM CHLORIDE 1,000 ML IV SCH (21:46)
[2021-06-21] MEDS: HEPARIN NA (PORCINE) 5,000 UNITS/ML 1ML VIAL SQ SCH ×3 (05:29→21:18)
[2021-06-21] MEDS: FAMOTIDINE 40 MG TABLET PO SCH ×2 (09:13→21:18)
[2021-06-21] MEDS: SODIUM CHLORIDE 1,000 ML IV SCH ×3 (09:41→22:53)
[2021-06-21] MEDS ORDERED: cefTRIAXone SODIUM 1 GM VIAL ONE (20:59)
[2021-06-21] MEDS ORDERED: DEXTROSE 5%-WATER - 50 ML IVPB ONE (20:59)
[2021-06-21] MEDS: CEFTRIAXONE 1 GM in DEXTROSE 5%-WATER - 50 ML IVPB SCH (21:16)
[2021-06-21] MEDS: ACETAMINOPHEN 325 MG TABLET (FP) PO PRN (21:20)
[2021-06-22] MEDS: HEPARIN NA (PORCINE) 5,000 UNITS/ML 1ML VIAL SQ SCH ×3 (06:27→21:03)
[2021-06-22 08:56] LABS: BASO % 0.6 % (0-2.0); EOS % 2.6 % (0-4.5); HEMATOCRIT 30.2 % (32.4-45.2); HEMOGLOBIN 10.1 GM/dL (10.7-15.3); LYMPH % 25.5 % (8-40); MCH 30.3 pg (25.7-33.7); MCHC 33.5 g/dl (32.0-36.0); MEAN CELL VOLUME 90.5 fl (80-96); MEAN PLT VOLUME 7.4 fl (7.5-11.1); MONO % 8.7 % (3.8-10.2); NEUT % 62.6 % (42.8-82.8); PLATELET COUNT 238 10^3/uL (134-434); RBC 3.34 M/mm3 (3.60-5.2); RDW 13.4 % (11.6-15.6); WHITE BLOOD COUNT 5.2 K/mm3 (4.0-10.0)
[2021-06-22 09:17] LABS: CALCIUM 8.4 mg/dL (8.5-10.1)
[2021-06-22 09:18] LABS: CREATININE 0.9 mg/dL (0.55-1.3)
[2021-06-22] MEDS: HYDROCHLOROTHIAZIDE 12.5 MG CAPSULE (FP) PO SCH (10:02)
[2021-06-22] MEDS: FAMOTIDINE 40 MG TABLET PO SCH ×2 (10:03→21:03)
[2021-06-22] MEDS ORDERED: DEXTROSE 5%-WATER - 50 ML IVPB ONE (20:23)
[2021-06-22] MEDS ORDERED: cefTRIAXone SODIUM 1 GM VIAL ONE (20:23)
[2021-06-22] MEDS: CEFTRIAXONE 1 GM in DEXTROSE 5%-WATER - 50 ML IVPB SCH (21:02)
[2021-06-22] MEDS: SODIUM CHLORIDE 1,000 ML IV SCH (21:09)
[2021-06-22] MEDS ORDERED: MELATONIN 5 MG TABLETS PO ONE (22:22)
[2021-06-23] MEDS: HEPARIN NA (PORCINE) 5,000 UNITS/ML 1ML VIAL SQ SCH (05:25)
[2021-06-23 06:09] VITALS: PULSE 77
[2021-06-23] MEDS: FAMOTIDINE 40 MG TABLET PO SCH (10:15)
[2021-06-23] MEDS: ACETAMINOPHEN 325 MG TABLET (FP) PO PRN (10:54)
[2021-06-23 12:17] VITALS: BP 139/77; TEMP 98.7
== END 2021-06-23 14:17 | disposition home or self-care (01) | DRG 392 ==
LOC: JER 14:24 → JERBED 20:45 → J8W 23:54
PROVIDERS: ADMIT Internal Medicine; ATTEND Internal Medicine
DX: K57.32 Diverticulitis of large intestine without perforation or abscess without bleeding (principal); R10.31 Right lower quadrant pain; K44.9 Diaphragmatic hernia without obstruction or gangrene; I10 Essential (primary) hypertension; K21.9 Gastro-esophageal reflux disease without esophagitis; K59.00 Constipation, unspecified
CPT/HCPCS: 36415; 71046-TC-FY; 74177-TC; 80048; 80053; 81003; 83690; 85025; 85610; 85730; 86140; 87040; 87086; 93005; 93010; 99285-25; C9803-CS; J1644; Q9967; U0003; U0005

== ENCOUNTER 2022-04-20 06:57 | Inpatient (IN) | payer OTHER ==
[2022-04-20] MEDS ORDERED: ACETAMINOPHEN 1000 MG/100 ML BAG IVPB ONE (08:45)
[2022-04-20] MEDS ORDERED: morphine CARPU-JECT 2 MG/1 ML DISP.SYRIN IVPUSH ONE ×2 (08:45→11:03)
[2022-04-20] MEDS ORDERED: ONDANSETRON 4 MG/2 ML VIAL IVPUSH ONE (08:45)
[2022-04-20] MEDS ORDERED: LACTATED RINGERS SOLUTION 1000 ML INFUS.BAG IV ONE ×2 (08:45→14:09)
[2022-04-20] MEDS ORDERED: ACETAMINOPHEN INJECTION 100 ML IVPB ONE (09:03)
[2022-04-20] MEDS ORDERED: ONDANSETRON 4 MG/2 ML VIAL ONE (09:03)
[2022-04-20 09:58] LABS: BASO % 0.4 % (0-2.0); HEMATOCRIT 36.1 % (32.4-45.2); HEMOGLOBIN 12.1 GM/dL (10.7-15.3); LYMPH % 16.1 % (8-40); MCH 30.7 pg (25.7-33.7); MCHC 33.6 g/dl (32.0-36.0); MEAN CELL VOLUME 91.2 fl (80-96); MONO % 6.7 % (3.8-10.2); NEUT % 75.8 % (42.8-82.8); PLATELET COUNT 370 10^3/uL (134-434); RBC 3.96 M/mm3 (3.60-5.2); RDW 13.5 % (11.6-15.6); WHITE BLOOD COUNT 8.4 K/mm3 (4.0-10.0)
[2022-04-20 10:04] LABS: EPI CELLS 3 /uL (0-25.1); HYALINE CASTS 0 /uL (0-3.1); PH,URINE 6.5 (5.0-8.0); URINE APPEARANCE CLEAR; URINE BACTERIA 1 /uL (0-1359); URINE BILIRUBIN NEGATIVE (NEGATIVE); URINE COLOR YELLOW; URINE GLUCOSE (UA) NEGATIVE (NEGATIVE); URINE KETONE NEGATIVE (NEGATIVE); URINE LEUK ESTERASE NEGATIVE (NEGATIVE); URINE NITRITE NEGATIVE (NEGATIVE); URINE PROTEIN NEGATIVE (NEGATIVE); URINE RBC 58 /uL (0-23.9); URINE UROBILINOGEN 0.2 mg/dL (0.2-1.0); URINE WBC 2 /uL (0-25.8)
[2022-04-20 10:07] LABS: INR 1.16 (0.83-1.09); PROTHROMBIN TIME (PATIENT) 13.4 SEC (9.7-13.0)
[2022-04-20 10:09] LABS: ACTIVATED PTT 39.5 SECONDS (25.2-36.5)
[2022-04-20 11:00] LABS: ALBUMIN 4.4 g/dl (3.4-5.0); BLOOD UREA NITROGEN 13.6 mg/dL (7-18); CALCIUM 10.1 mg/dL (8.5-10.1); MAGNESIUM 2.2 mg/dL (1.8-2.4)
[2022-04-20 11:05] LABS: BILIRUBIN,TOTAL 0.5 mg/dL (0.2-1); TOT PROT 8.1 g/dl (6.4-8.2)
[2022-04-20] MEDS ORDERED: PIPERACILLIN/TAZOB 3.375 GM 3.375 GM in DEXTROSE 5%-WATER - 50 ML IVPB ONE (14:08)
[2022-04-20] MEDS ORDERED: PIPERACILLIN/TAZOB 3.375 GM 3.375 GM/50 ML BAG IVPB ONE (14:24)
[2022-04-20] MEDS ORDERED: ONDANSETRON 4 MG/2 ML VIAL IVPUSH PRN (14:54)
[2022-04-20] MEDS ORDERED: ACETAMINOPHEN 1000 MG/100 ML BAG IVPB PRN (14:56)
[2022-04-20] MEDS: D5-1/2NS+20 MEQ KCL - 20 MEQ/1,000 ML INFUS.BAG IV SCH (15:50)
[2022-04-20] MEDS: amLODIPine BESYLATE 5 MG TABLET (FP) PO SCH (15:57)
[2022-04-20 16:28] VITALS: BMI 26.5
[2022-04-20] MEDS ORDERED: PIPERACILLIN/TAZOB 3.375 GM 3.375 GM in DEXTROSE 5%-WATER - 50 ML IVPB SCH (18:00)
[2022-04-20] MEDS: PIPERACILLIN/TAZOB 3.375 GM 3.375 GM in DEXTROSE 5%-WATER - 50 ML IVPB SCH (22:20)
[2022-04-20] MEDS: HEPARIN NA (PORCINE) 5,000 UNITS/ML 1ML VIAL SQ SCH (22:21)
[2022-04-20] MEDS: FAMOTIDINE 20 MG TABLET PO SCH (22:21)
[2022-04-21] MEDS: D5-1/2NS+20 MEQ KCL - 20 MEQ/1,000 ML INFUS.BAG IV SCH ×2 (02:35→14:02)
[2022-04-21] MEDS: PIPERACILLIN/TAZOB 3.375 GM 3.375 GM in DEXTROSE 5%-WATER - 50 ML IVPB SCH ×2 (05:48→13:47)
[2022-04-21] MEDS: HEPARIN NA (PORCINE) 5,000 UNITS/ML 1ML VIAL SQ SCH ×3 (05:49→21:27)
[2022-04-21 09:16] LABS: BASO % 0.7 % (0-2.0); EOS % 2.2 % (0-4.5); HEMATOCRIT 34.2 % (32.4-45.2); HEMOGLOBIN 11.7 GM/dL (10.7-15.3); LYMPH % 20.2 % (8-40); MCH 31.2 pg (25.7-33.7); MCHC 34.2 g/dl (32.0-36.0); MEAN CELL VOLUME 91.2 fl (80-96); MEAN PLT VOLUME 7.1 fl (7.5-11.1); NEUT % 69.9 % (42.8-82.8); PLATELET COUNT 355 10^3/uL (134-434); RBC 3.74 M/mm3 (3.60-5.2); RDW 13.5 % (11.6-15.6); WHITE BLOOD COUNT 8.8 K/mm3 (4.0-10.0)
[2022-04-21 09:37] LABS: ALBUMIN 4.1 g/dl (3.4-5.0); BLOOD UREA NITROGEN 8.1 mg/dL (7-18); CALCIUM 9.6 mg/dL (8.5-10.1)
[2022-04-21 09:40] LABS: CREATININE 1.1 mg/dL (0.55-1.3)
[2022-04-21 09:41] LABS: TOT PROT 7.6 g/dl (6.4-8.2)
[2022-04-21 09:42] LABS: BILIRUBIN,TOTAL 0.5 mg/dL (0.2-1)
[2022-04-21] MEDS: FAMOTIDINE 20 MG TABLET PO SCH (09:47)
[2022-04-21] MEDS: amLODIPine BESYLATE 5 MG TABLET (FP) PO SCH (09:47)
[2022-04-21 14:17] VITALS: RESP 20
[2022-04-21] MEDS: POLYETHYLENE GLYCOL (HEALTHYLAX) 3350 17 GM PACKET PO SCH (21:27)
[2022-04-22] MEDS: D5-1/2NS+20 MEQ KCL - 20 MEQ/1,000 ML INFUS.BAG IV SCH ×2 (02:05→17:38)
[2022-04-22] MEDS: PIPERACILLIN/TAZOB 3.375 GM 3.375 GM in DEXTROSE 5%-WATER - 50 ML IVPB SCH ×5 (02:06→17:39)
[2022-04-22] MEDS: HEPARIN NA (PORCINE) 5,000 UNITS/ML 1ML VIAL SQ SCH ×3 (06:35→21:59)
[2022-04-22] MEDS: amLODIPine BESYLATE 5 MG TABLET (FP) PO SCH (09:49)
[2022-04-22] MEDS: POLYETHYLENE GLYCOL (HEALTHYLAX) 3350 17 GM PACKET PO SCH ×2 (09:49→21:59)
[2022-04-22] MEDS: FAMOTIDINE 20 MG TABLET PO SCH (09:49)
[2022-04-23] MEDS: PIPERACILLIN/TAZOB 3.375 GM 3.375 GM in DEXTROSE 5%-WATER - 50 ML IVPB SCH ×2 (02:42→10:19)
[2022-04-23] MEDS: D5-1/2NS+20 MEQ KCL - 20 MEQ/1,000 ML INFUS.BAG IV SCH (04:15)
[2022-04-23] MEDS: HEPARIN NA (PORCINE) 5,000 UNITS/ML 1ML VIAL SQ SCH ×2 (05:39→14:08)
[2022-04-23] MEDS: amLODIPine BESYLATE 5 MG TABLET (FP) PO SCH (10:19)
[2022-04-23] MEDS: FAMOTIDINE 20 MG TABLET PO SCH (10:19)
[2022-04-23] MEDS: POLYETHYLENE GLYCOL (HEALTHYLAX) 3350 17 GM PACKET PO SCH (10:19)
[2022-04-23 13:31] VITALS: BP 141/70; PULSE 82; TEMP 98
== END 2022-04-23 14:36 | disposition home or self-care (01) | DRG 392 ==
LOC: JER 06:57 → JERBED 13:43 → J7W 15:35
PROVIDERS: ADMIT Internal Medicine; ATTEND Internal Medicine
DX: K57.92 Diverticulitis of intestine, part unspecified, without perforation or abscess without bleeding (principal); I10 Essential (primary) hypertension; K21.9 Gastro-esophageal reflux disease without esophagitis; K44.9 Diaphragmatic hernia without obstruction or gangrene; K57.90 Diverticulosis of intestine, part unspecified, without perforation or abscess without bleeding; M81.0 Age-related osteoporosis without current pathological fracture
CPT/HCPCS: 36415; 74177-TC; 80053; 81003; 83690; 83735; 85025; 85610; 85730; 86140; 86850; 86900; 86901; 87086; 93005; 93010; 99285-25; C9803-CS; J1644; Q9967; U0003; U0005

== ENCOUNTER 2022-09-19 11:11 | Inpatient (IN) | payer MEDICARE, OTHER ==
[2022-09-19] MEDS ORDERED: ACETAMINOPHEN 1000 MG/100 ML BAG IVPB ONE (11:48)
[2022-09-19 12:05] LABS: BASO % 0.7 % (0-2.0); EOS % 0.5 % (0-4.5); HEMATOCRIT 33.2 % (32.4-45.2); HEMOGLOBIN 11.1 GM/dL (10.7-15.3); LYMPH % 14.9 % (8-40); MCH 29.4 pg (25.7-33.7); MCHC 33.4 g/dl (32.0-36.0); MEAN CELL VOLUME 88.1 fl (80-96); MEAN PLT VOLUME 7.2 fl (7.5-11.1); MONO % 6.7 % (3.8-10.2); NEUT % 77.2 % (42.8-82.8); PLATELET COUNT 284 10^3/uL (134-434); RBC 3.76 M/mm3 (3.60-5.2); RDW 13.8 % (11.6-15.6); WHITE BLOOD COUNT 7.4 K/mm3 (4.0-10.0)
[2022-09-19] MEDS ORDERED: ACETAMINOPHEN INJECTION 100 ML IVPB ONE (12:08)
[2022-09-19 12:21] LABS: EPI CELLS 2 /uL (0-25.1); HYALINE CASTS 0 /uL (0-3.1); URINE APPEARANCE CLEAR; URINE BACTERIA 0 /uL (0-1359); URINE BILIRUBIN NEGATIVE (NEGATIVE); URINE COLOR YELLOW; URINE GLUCOSE (UA) NEGATIVE (NEGATIVE); URINE KETONE NEGATIVE (NEGATIVE); URINE LEUK ESTERASE TRACE (NEGATIVE); URINE NITRITE NEGATIVE (NEGATIVE); URINE PROTEIN NEGATIVE (NEGATIVE); URINE RBC 26 /uL (0-23.9); URINE UROBILINOGEN 0.2 mg/dL (0.2-1.0); URINE WBC 3 /uL (0-25.8)
[2022-09-19 12:25] LABS: ALBUMIN 3.8 g/dl (3.4-5.0); BLOOD UREA NITROGEN 21.3 mg/dL (7-18)
[2022-09-19 12:27] LABS: CREATININE 1.1 mg/dL (0.55-1.3)
[2022-09-19 12:29] LABS: BILIRUBIN,TOTAL 0.4 mg/dL (0.2-1); TOT PROT 7.3 g/dl (6.4-8.2)
[2022-09-19] MEDS ORDERED: morphine CARPU-JECT 4 MG/1 ML DISP.SYRIN IVPUSH ONE ×2 (13:07→18:33)
[2022-09-19] MEDS ORDERED: morphine SULFATE 4 MG/ML VIAL ONE ×2 (13:14→18:36)
[2022-09-19] MEDS ORDERED: CIPROFLOXACIN 400 MG/D5W 400 MG/200 ML IVPB IVPB ONE (16:01)
[2022-09-19] MEDS ORDERED: FAMOTIDINE 20 MG TABLET PO SCH (22:00)
[2022-09-19] MEDS ORDERED: ACETAMINOPHEN 1000 MG/100 ML BAG IVPB PRN (22:19)
[2022-09-19] MEDS ORDERED: TRIMETHOBENZAMIDE HCL 200MG/2ML INJ IM PRN (23:35)
[2022-09-19 23:40] VITALS: RESP 18; BMI 26.1
[2022-09-20] MEDS ORDERED: FAMOTIDINE 20 MG TABLET PO SCH (07:00)
[2022-09-20] MEDS ORDERED: HEPARIN NA (PORCINE) 5,000 UNITS/ML 1ML VIAL SQ SCH (10:00)
[2022-09-20 10:35] VITALS: BP 114/70; PULSE 80; TEMP 98.1
[2022-09-20 10:44] LABS: BASO % 0.4 % (0-2.0); EOS % 1.5 % (0-4.5); HEMATOCRIT 34.1 % (32.4-45.2); HEMOGLOBIN 11.4 GM/dL (10.7-15.3); LYMPH % 18.4 % (8-40); MCH 29.6 pg (25.7-33.7); MCHC 33.5 g/dl (32.0-36.0); MEAN CELL VOLUME 88.4 fl (80-96); MEAN PLT VOLUME 7.1 fl (7.5-11.1); MONO % 9.6 % (3.8-10.2); NEUT % 70.1 % (42.8-82.8); PLATELET COUNT 298 10^3/uL (134-434); RBC 3.86 M/mm3 (3.60-5.2); RDW 13.9 % (11.6-15.6); WHITE BLOOD COUNT 8.3 K/mm3 (4.0-10.0)
[2022-09-20 10:49] LABS: INR 1.28 (0.83-1.09); PROTHROMBIN TIME (PATIENT) 14.8 SEC (9.7-13.0)
[2022-09-20 10:52] LABS: ACTIVATED PTT 37.2 SECONDS (25.2-36.5)
[2022-09-20 11:01] LABS: POTASSIUM 4.3 mmol/L (3.5-5.1)
[2022-09-20 11:06] LABS: CALCIUM 9.9 mg/dL (8.5-10.1)
[2022-09-20 11:07] LABS: BLOOD UREA NITROGEN 14.1 mg/dL (7-18); MAGNESIUM 2.2 mg/dL (1.8-2.4)
[2022-09-20 11:10] LABS: CREATININE 1.2 mg/dL (0.55-1.3); PHOSPHOROUS 3.1 mg/dL (2.5-4.9)
[2022-09-20] MEDS ORDERED: ACETAMINOPHEN 325 MG TABLET (FP) PO PRN (22:28)
[2022-09-21] MEDS ORDERED: HYDROCHLOROTHIAZIDE 12.5 MG CAPSULE (FP) PO SCH (10:00)
== END 2022-09-20 10:28 | disposition left against medical advice (07) | DRG 392 ==
LOC: JER 11:11 → JERBED 15:58 → J5S 20:29
PROVIDERS: ADMIT Internal Medicine; ATTEND Internal Medicine
DX: K57.32 Diverticulitis of large intestine without perforation or abscess without bleeding (principal); I10 Essential (primary) hypertension; K21.9 Gastro-esophageal reflux disease without esophagitis; R50.9 Fever, unspecified; R19.7 Diarrhea, unspecified
CPT/HCPCS: 36415; 74177-TC; 80048; 80053; 81003; 83690; 83735; 84100; 84484; 85025; 85610; 85730; 87086; 99285-25

== ENCOUNTER 2023-05-22 14:47 | Emergency (ER) | payer MEDICARE, OTHER ==
[2023-05-22 15:01] VITALS: BP 147/73; PULSE 87; RESP 18; TEMP 97.6; BMI 25.7
[2023-05-22 16:06] LABS: BASO % 0.4 % (0-2.0); EOS % 0.3 % (0-4.5); HEMATOCRIT 32.4 % (32.4-45.2); LYMPH % 13.6 % (8-40); MCH 30.6 pg (25.7-33.7); MCHC 33.9 g/dl (32.0-36.0); MEAN CELL VOLUME 90.3 fl (80-96); MEAN PLT VOLUME 7.2 fl (7.5-11.1); MONO % 5.5 % (3.8-10.2); NEUT % 80.2 % (42.8-82.8); PLATELET COUNT 269 10^3/uL (134-434); RBC 3.59 M/mm3 (3.60-5.2); WHITE BLOOD COUNT 11.4 K/mm3 (4.0-10.0)
[2023-05-22 16:15] LABS: INR 1.07 (0.83-1.09); PROTHROMBIN TIME (PATIENT) 12.4 SEC (9.7-13.0)
[2023-05-22 16:22] LABS: EPI CELLS 4 /uL (0-25.1); HYALINE CASTS 0 /uL (0-3.1); PH,URINE 6.5 (5.0-8.0); URINE APPEARANCE CLEAR; URINE BACTERIA 2 /uL (0-1359); URINE BILIRUBIN NEGATIVE (NEGATIVE); URINE COLOR YELLOW; URINE GLUCOSE (UA) NEGATIVE (NEGATIVE); URINE KETONE NEGATIVE (NEGATIVE); URINE LEUK ESTERASE NEGATIVE (NEGATIVE); URINE NITRITE NEGATIVE (NEGATIVE); URINE PROTEIN NEGATIVE (NEGATIVE); URINE RBC 100 /uL (0-23.9); URINE UROBILINOGEN 0.2 mg/dL (0.2-1.0); URINE WBC 2 /uL (0-25.8)
[2023-05-22] MEDS ORDERED: ACETAMINOPHEN INJECTION 100 ML IVPB ONE (16:28)
[2023-05-22] MEDS ORDERED: CEFTRIAXONE 1 GM/50 ML BAG ONE (16:28)
[2023-05-22] MEDS: ACETAMINOPHEN 1000 MG/100 ML BAG IVPB ONE (16:36)
[2023-05-22 16:44] LABS: POTASSIUM 3.7 mmol/L (3.5-5.1)
[2023-05-22] MEDS: CEFTRIAXONE 1,000 MG in DEXTROSE 5%-WATER - 50 ML IVPB ONE (16:45)
[2023-05-22 16:46] LABS: CALCIUM 10.1 mg/dL (8.5-10.1)
[2023-05-22 16:47] LABS: ALBUMIN 4.2 g/dl (3.4-5.0); BLOOD UREA NITROGEN 18.4 mg/dL (7-18)
[2023-05-22 16:50] LABS: CREATININE 1.1 mg/dL (0.55-1.3)
[2023-05-22 16:51] LABS: BILIRUBIN,TOTAL 0.4 mg/dL (0.2-1); TOT PROT 7.7 g/dl (6.4-8.2)
[2023-05-22] MEDS: morphine CARPU-JECT 2 MG/1 ML DISP.SYRIN IVPUSH ONE (16:55)
== END 2023-05-22 20:41 | disposition home or self-care (01) ==
LOC: JER 14:47
PROC: 3E03329 Introduction of Other Anti-infective into Peripheral Vein, Percutaneous Approach (ICD-10-PCS; principal; 2023-05-22)
PROC: 3E033GC Introduction of Other Therapeutic Substance into Peripheral Vein, Percutaneous Approach (ICD-10-PCS; 2023-05-22)
PROC: 3E033GC Introduction of Other Therapeutic Substance into Peripheral Vein, Percutaneous Approach (ICD-10-PCS; 2023-05-22)
DX: R10.30 Lower abdominal pain, unspecified (principal); R39.89 Other symptoms and signs involving the genitourinary system
CPT/HCPCS: 36415; 74177-TC; 76856-TC; 80053; 81003; 85025; 85610; 86850; 86900; 86901; 87086; 99285-25; J0131; Q9967